=== PATIENT | female | born 1970 | race Caucasian/White ===

== ENCOUNTER → 2020-08-31 12:32 | Outpatient (BNVA) | payer OTHER, SELFPAY | PROVIDERS: Visit Provider Nurse Practitioner Family | DX: R50.9 Fever, unspecified (principal); W57.XXXA Bitten or stung by nonvenomous insect and other nonvenomous arthropods, initial encounter; X58.XXXA Exposure to other specified factors, initial encounter | CPT/HCPCS: 87400 ==

== ENCOUNTER → 2020-12-04 08:18 | Outpatient (BNVA) | payer OTHER, SELFPAY | PROVIDERS: Visit Provider Obstetrics & Gynecology | DX: Z01.419 Encounter for gynecological examination (general) (routine) without abnormal findings (principal); Z12.11 Encounter for screening for malignant neoplasm of colon | CPT/HCPCS: 80053; 80061; 84443; 85025 ==

== ENCOUNTER → 2021-03-16 13:21 | Outpatient (BNVA) | payer OTHER, SELFPAY | PROVIDERS: Visit Provider Surgery | DX: Z01.812 Encounter for preprocedural laboratory examination (principal); Z20.822 Contact with and (suspected) exposure to COVID-19 | CPT/HCPCS: 87635 ==

== ENCOUNTER 2021-03-23 09:13 | Day surgery (SDC) | payer OTHER, SELFPAY ==
[2021-03-21 14:08] VITALS: BMI 34.7
--- NOTE | 2021-03-23 09:36 | ANES.PREANE2 ---
Pre-Anesthetic Assessment Pre-Anesthetic Assessment: Height/Weight: Height 1.57 m Weight 86.183 kg Proposed Procedure: Operation Date: 03/23/21 10:45 Proposed Procedures p Colonoscopy 32521 Z12.11(Not Applicable) - Pardeep Minor MD Was Beta El taken within 24 hours: N/A Was Clonidine taken within 24 hours: N/A Social: Social History: No alcohol and No tobacco Exam: Pre-Anes Outpt Exam: alert, oriented x 3, clear to auscultation bilaterally and regular rate & rhythm Airway: Submandibular: WNL Cervical ROM: WNL MP: 2 Dentition: Full CV/HEM: CV/HEM: HTN Metabolic: Metabolic: Morbid obesity Anesthetic Plan: ASA status: 2 Anesthesia: MAC Risk of > 500 ml blood loss (7ml/kg in children): No PFSH Anesthesia PFSH: Surgical History (Updated 02/20/21 @ 14:55 by Pardeep Minor MD) History of bladder surgery History of hysterectomy History of tubal ligation Family History Mother Cancer Lung Diabetes Hypertension Hyperlipidemia Father Cancer possible lungs--unknown Chronic kidney disease (CKD) Diabetes Hypertension Hyperlipidemia Stroke Sister Diabetes Cancer lung Hypertension Hyperlipidemia Denies family history of CAD (coronary artery disease) Clotting disorder Bleeding disorder Social History Second hand smoke exposure: No Alcohol intake: never Desire information about alcohol rehabilitation?: No Desire information about substance/drug rehabilitation?: No Data Anesthesia Cardiac Studies: No Data to Display
[2021-03-23 09:49] VITALS: BP 114/83; PULSE 74; RESP 18; TEMP 36.2; O2SAT 95
[2021-03-23] MEDS: sodium chloride 0.9% 1,000 ML 30 ML IV (10:02)
--- NOTE | 2021-03-23 11:51 | P.HP_ITS ---
Same Day Surgery H&P Indication for Procedure/HPI DATE OF PROCEDURE: March 23, 2021 CHIEF COMPLAINT/INDICATIONFOR SURGICAL PROCEDURE: colonoscopy PREOP DIAGNOSIS: diagnostic PLANNED PROCEDRUE: Operation Date: 03/23/21 10:45 Proposed Procedures p Colonoscopy 49000 Z12.11(Not Applicable) - Pardeep Minor MD Medications/Allergies* Home Medications Medication Instructions Recorded Confirmed Type multivitamin 1 tab PO DAILY 11/30/20 03/21/21 History Allergies/Adverse Reactions Allergy/AdvReac Type Severity Reaction Status Date / Time No Known Allergies Allergy Verified 02/20/21 14:28 Current Medications: Generic Name Dose Route Start Last Admin Trade Name Freq PRN Reason Stop Dose Admin Sodium Chloride 1,000 mls @ 30 mls/hr 03/23/21 09:45 03/23/21 10:02 Sodium Chloride 0.9% IV 03/24/21 09:44 30 mls/hr .Q24H CARITO Administration Pertinent History/Comorbid Conditions* Surgical History (Updated 02/20/21 @ 14:55 by Pardeep Minor MD) History of bladder surgery History of hysterectomy History of tubal ligation Family History (Updated 11/30/20 @ 14:11 by Pamela Berry LPN) Diabetes Mother Father Sister Hyperlipidemia Mother Father Sister Chronic kidney disease (CKD) Father Cancer Mother Lung Father possible lungs--unknown Sister lung Hypertension Mother Father Sister Stroke Father Denies family history of CAD (coronary artery disease) Clotting disorder Bleeding disorder Social History Second hand smoke exposure: No Alcohol intake: never Desire information about alcohol rehabilitation?: No Desire information about substance/drug rehabilitation?: No Pertinent Exam Findings alert, oriented x 3 and regular rate & rhythm Recommendations Surgery/Procedure today Coding Level of Care Code Acute Standpipe Tender for Darryl Ro
[2021-03-23 12:14] VITALS: BP 135/90; PULSE 69; RESP 16; TEMP 36.1; O2SAT 97
[2021-03-23 12:24] VITALS: BP 130/90; PULSE 69; RESP 18; O2SAT 98
--- NOTE | 2021-03-23 13:25 | ANE.PACU2 ---
Inpatient post-anesthesia follow up: Airway intact: Yes Vital signs: Temperature 97.0 F Pulse Rate 69 Respiratory Rate 18 Blood Pressure 130/90 Pulse Oximetry 98 Oxygen Delivery Me thod Room Air Oxygen Flow Rate Fraction of Inspir ed Oxygen Hydration adequate: Yes Nausea and vomiting: No Pain level: 1 Mental status: Baseline
== END 2021-03-23 12:32 | disposition home or self-care (01) ==
PROVIDERS: PCP Family Medicine; Visit Provider Surgery
PROC: 0DJD8ZZ Inspection of Lower Intestinal Tract, Via Natural or Artificial Opening Endoscopic (ICD-10-PCS; CPT 45378; principal; 2021-03-23 10:45)
DX: K92.1 Melena (principal); D12.4 Benign neoplasm of descending colon; K57.30 Diverticulosis of large intestine without perforation or abscess without bleeding; D12.5 Benign neoplasm of sigmoid colon; I10 Essential (primary) hypertension; E66.01 Morbid (severe) obesity due to excess calories; Z68.34 Body mass index [BMI] 34.0-34.9, adult
CPT/HCPCS: 45380; 88305; 96360; 96361; J2704; J7030

== ENCOUNTER 2021-05-07 11:13 | Outpatient (CLI) | payer OTHER, SELFPAY ==
--- NOTE | 2021-05-07 11:30 | MM_ITS ---
WS: [id number] BILATERAL SCREENING DIGITAL MAMMOGRAM WITH CAD HISTORY: Breast cancer screening COMPARISON: 09/25/2016 and 09/26/2015 Bilateral CC and MLO views submitted. Computer aided detection analyzed. Breast composition: There are scattered areas of fibroglandular density. No suspicious masses, microc alcifications or architectural distortion. Long-term stability of an asymmetry in the medial RIGHT br east at an anterior to mid depth. Prior biopsy clip LEFT breast at 9:00, anterior. MM/[place] [id number] IMPRESSION: BI-RADS: 2-Benign FOLLOW UP: 1 Year Follow-up
== END 2021-05-07 11:14 | disposition home or self-care (01) ==
LOC: RADSHAW 11:17
PROVIDERS: PCP Family Medicine; Visit Provider Family Medicine
DX: Z12.31 Encounter for screening mammogram for malignant neoplasm of breast (principal); I10 Essential (primary) hypertension
CPT/HCPCS: 77067

== ENCOUNTER 2023-02-26 10:16 | Outpatient (CLI) | payer OTHER, SELFPAY ==
--- NOTE | 2023-02-26 10:24 | MM_ITS ---
WS: [id number] BILATERAL SCREENING DIGITAL TOMOSYNTHESIS MAMMOGRAM WITH CAD HISTORY: SCREENING COMPARISON: 05/07/2021 and 09/25/2016 Bilateral CC and MLO views with tomosynthesis and synthetic mammography submitted. Computer aided det ection analyzed. Breast composition: There are scattered areas of fibroglandular density. No suspicious masses, microc alcifications or architectural distortion. IMPRESSION: MM/[place] [id number] BI-RADS: 1-Negative FOLLOW UP: 1 Year Follow-up
== END 2023-02-26 10:17 | disposition home or self-care (01) ==
LOC: RAD 10:16
PROVIDERS: PCP Family Medicine; Visit Provider Family Medicine
DX: Z12.31 Encounter for screening mammogram for malignant neoplasm of breast (principal)
CPT/HCPCS: 77063; 77067

== ENCOUNTER → 2023-11-05 13:13 | Outpatient (BNVA) | payer OTHER, SELFPAY | PROVIDERS: PCP Family Medicine; Visit Provider Nurse Practitioner Family | DX: M25.511 Pain in right shoulder | CPT/HCPCS: 73030 ==

== ENCOUNTER → 2024-03-03 12:41 | Outpatient (BNVA) | payer OTHER, SELFPAY | PROVIDERS: PCP Family Medicine; Visit Provider Nurse Practitioner Women's Health | DX: Z00.00 Encounter for general adult medical examination without abnormal findings (principal); R51.9 Headache, unspecified | CPT/HCPCS: 80053; 82306; 83036; 84439; 84443; 84481; 85025; 87426 ==

== ENCOUNTER 2024-03-26 12:30 | Outpatient (CLI) | payer OTHER, SELFPAY ==
--- NOTE | 2024-03-26 12:30 | MM_ITS ---
WS: [id number] BILATERAL 3D TOMOSYNTHESIS DIGITAL SCREENING MAMMOGRAPHY WITH CAD CLINICAL INFORMATION: Z12.39 - Encounter for other screening for malignant neop... HISTORY: Screening mammogram. No current complaints. COMPARISON: 2022 TECHNIQUE: Bilateral CC and MLO views. FINDINGS: Scattered fibroglandular densities bilaterally. No suspicious focal mass, asymmetry, calcifications, or architectural distortion. No evidence of malignancy. Biopsy clip LEFT breast is stable MM/MM scr BI tomosynthesis [id number] IMPRESSION: DENSITY: There are scattered areas of fibroglandular density. BI-RADS: 2 - Benign. FOLLOW UP: 1 Year Follow-up Recommend return to annual screening mammography.
== END 2024-03-26 12:31 | disposition home or self-care (01) ==
PROVIDERS: PCP Family Medicine; Visit Provider Nurse Practitioner Women's Health
DX: Z12.31 Encounter for screening mammogram for malignant neoplasm of breast (principal); R92.323 Mammographic fibroglandular density, bilateral breasts
CPT/HCPCS: 77063; 77067

== ENCOUNTER → 2025-03-21 07:51 | Outpatient (BNVA) | payer OTHER, SELFPAY | PROVIDERS: PCP Family Medicine; Visit Provider Orthopaedic Surgery | DX: M25.511 Pain in right shoulder (principal); G89.29 Other chronic pain | CPT/HCPCS: 73030 ==

== ENCOUNTER 2025-04-05 08:34 | Outpatient (CLI) | payer OTHER, SELFPAY ==
--- NOTE | 2025-04-05 08:20 | MM_ITS ---
WS: [id number] Barium Enema TECHNICAL: BILATERAL 3D TOMOSYNTHESIS DIGITAL SCREENING MAMMOGRAPHY WITH CAD CLINICAL INFORMATION: Z12.39 - Encounter for other screening for malignant neop... HISTORY: Screening mammogram. No current complaints. COMPARISON: 2023 TECHNIQUE: Bilateral CC and MLO views. FINDINGS: Scattered fibroglandular densities bilaterally. No suspicious focal mass, asymmetry, calcifications, or architectural distortion. No evidence of malignancy. Stable biopsy clip LEFT breast MM/MM scr BI tomosynthesis [id number] IMPRESSION: DENSITY: There are scattered areas of fibroglandular density. BI-RADS: 2 - Benign. FOLLOW UP: 1 Year Follow-up Recommend return to annual screening mammography.
== END 2025-04-05 08:35 | disposition home or self-care (01) ==
LOC: RAD 08:37
PROVIDERS: PCP Family Medicine; Visit Provider Nurse Practitioner Women's Health
DX: Z12.31 Encounter for screening mammogram for malignant neoplasm of breast (principal); R92.323 Mammographic fibroglandular density, bilateral breasts; Z96.89 Presence of other specified functional implants
CPT/HCPCS: 77063; 77067